=== PATIENT | male | born 1945 | race Caucasian/White ===

== ENCOUNTER → 2017-01-02 | Outpatient (CLI) | payer MEDICARE ==
[~2017-01-02] MED LIST: ALPR.25T PO; AMOX500C2 PO; ASP81CT PO; ATEN-155 PO; CLOP75TA PO; DIAZ5TAB49 PO; FEXO180T PO; FISH1CAP15 PO; FLT05NA16 NS; FLUT10SP NS; LOSA25TA15 PO; LOSA50TA6 PO; MECL25TA56 PO; MULT-1029 PO; MULT-418; OXYC-12 PO; PNT40TEC PO; PRV20T PO; SCOP1PAT TD; SIMV40TA4 PO; VALS1TAB4 PO; VALS1TAB48 PO; VITAMIN C; VITAMIN E PO
--- NOTE | 2017-01-02 15:58 | Diagnostic Imaging Report ---
PROCEDURE: US gallbladder. TECHNIQUE: Multiple real-time grayscale images were obtained over the right upper quadrant in various projections. INDICATION: Right upper quadrant pain. FINDINGS: The pancreas is obscured by bowel gas. The liver is hyperechoic and is slightly enlarged, measuring 19 cm in craniocaudal diagonal dimension. There is hepatopedal flow in the portal vein. The gallbladder demonstrates no stones or wall thickening. It is slightly contracted. The sonographic Bazan sign is reportedly negative. The CBD is obscured by bowel gas. No intrahepatic biliary dilatation is evident. The right kidney is 11.5 cm in length with no hydronephrosis or focal lesion. No fluid collection in the upright abdomen is seen. IMPRESSION: Mildly enlarged hyperechoic liver may relate to fatty infiltration or hepatitis. Dictated by: Dictated on workstation # [id number]
== END ==
LOC: RAD 14:41
PROVIDERS: ATTEND Family Medicine
DX: R10.11 Right upper quadrant pain (principal)
CPT/HCPCS: 76705

== ENCOUNTER → 2017-01-14 | Outpatient (CLI) | payer MEDICARE ==
--- NOTE | 2017-01-14 13:02 | Diagnostic Imaging Report ---
PROCEDURE: CT abdomen and pelvis without contrast. TECHNIQUE: Multiple contiguous axial images were obtained through the abdomen and pelvis without the use of intravenous contrast. INDICATION: Elevated liver enzymes and abdominal pain. Patient is allergic to iodine contrast. FINDINGS: There is mild low density throughout the liver, indicating fatty infiltration. Otherwise, unenhanced images of the liver and spleen reveal no focal abnormality. There is no evidence of gallbladder or pancreatic lesion. Adrenal glands are unremarkable in appearance. Evaluation of the kidneys is limited without intravenous contrast however there is no evidence of calculus or hydronephrosis. No ureteric stone is seen. Bladder is unopacified but otherwise unremarkable. There is no evidence of appendiceal enlargement or inflammation. There is mild aortoiliac atherosclerotic calcification and mild lower lumbar spondylosis. There is small umbilical hernia containing fat. IMPRESSION: Hepatic steatosis without other evidence of acute abnormality in the abdomen or pelvis on the noncontrasted CT exam. Dictated by: Dictated on workstation # [id number]
== END ==
LOC: RAD 10:50
PROVIDERS: ATTEND Nurse Practitioner Family
DX: K76.0 Fatty (change of) liver, not elsewhere classified (principal); K42.9 Umbilical hernia without obstruction or gangrene; R74.8 Abnormal levels of other serum enzymes
CPT/HCPCS: 74176

== ENCOUNTER → 2017-02-11 | Outpatient (CLI) | payer MEDICARE ==
[~2017-02-11] MED LIST changes: +CATHETER FLUSH 10 ML SYR IV PRN
[2017-02-11 09:46] VITALS: BP 162/84
[2017-02-11 10:00] VITALS: BP 174/88
[2017-02-11 10:04] VITALS: BP 146/80
== END ==
LOC: CARD 07:56
PROVIDERS: ATTEND Internal Medicine Cardiovascular Disease
DX: I25.10 Atherosclerotic heart disease of native coronary artery without angina pectoris (principal); I65.23 Occlusion and stenosis of bilateral carotid arteries; R73.02 Impaired glucose tolerance (oral); E78.4 Other hyperlipidemia; I10 Essential (primary) hypertension; I47.1 Supraventricular tachycardia; Z87.891 Personal history of nicotine dependence
CPT/HCPCS: 78452; 93017

== ENCOUNTER → 2017-03-03 | Outpatient (CLI) | payer MEDICARE ==
[~2017-03-03] MED LIST changes: -CATHETER FLUSH 10 ML SYR IV PRN
== END ==
LOC: CARD 11:51
PROVIDERS: ATTEND Internal Medicine Cardiovascular Disease
DX: I25.10 Atherosclerotic heart disease of native coronary artery without angina pectoris (principal); I65.23 Occlusion and stenosis of bilateral carotid arteries; R73.02 Impaired glucose tolerance (oral); E78.4 Other hyperlipidemia; I10 Essential (primary) hypertension; I47.1 Supraventricular tachycardia; Z87.891 Personal history of nicotine dependence
CPT/HCPCS: 93306

== ENCOUNTER 2017-04-10 20:00 | Outpatient (CLI) | payer MEDICARE | END 2017-04-11 06:47 | disposition home or self-care (01) | LOC: SLEEP 20:00 | PROVIDERS: ATTEND Nurse Practitioner Family | DX: G47.33 Obstructive sleep apnea (adult) (pediatric) (principal); G47.10 Hypersomnia, unspecified | CPT/HCPCS: 95811 ==

== ENCOUNTER 2018-03-30 14:02 | Emergency (ER) | payer MEDICARE ==
[~2018-03-30] VITALS: Ht 175.3 cm; Wt 110.7 kg
--- OUTSIDE RECORDS SUMMARY | 2018-03-30 14:08 | XMS REPORT | Continuity of Care Document ---
Author Author [facility] Organization [facility] Address Unknown Phone Unavailable Allergies Active Description Code Type Severity Reaction Onset Reported/Identified Relationship to Patient Clinical Status Yes NKANo Known Allergies NKA Miscellaneous Allergy Mild N/A 06/20/2009 Yes iodine [id number] Drug Allergy Unknown RASH 03/11/2012 Medications There is no data. 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 07/16/2012 Ot 401.9 HYPERTENSION NOS 07/16/2012 Ot 414.01 CORONARY ATHEROSCLEROSIS OF [place] CORON 07/16/2012 Ot 785.1 PALPITATIONS 07/16/2012 Ot V58.66 LONG-TERM ( CURRENT) USE OF ASPIRIN 07/16/2012 Ot V58.69 OTH MED,LT, CURRENT USE 07/16/2012 Ot V85.36 BODY MASS INDEX 36.0-36.9, ADULT 01/19/2014 BOAZ LU MD Ot 455.0 INT HEMORRHOID W/O COMPL 01/19/2014 BOAZ LU MD Ot 455.3 EXT HEMORRHOID W/O COMPL 01/19/2014 BOAZ LU MD Ot 562.10 DIVERTICULOSIS COLON (W/O MENT OF HEMORR 01/19/2014 BOAZ LU MD Ot V12.72 PERSONAL HISTORY OF COLONIC POLYPS 05/24/2014 AFSANEH BETH MD Ot 427.69 05/24/2014 AFSANEH BETH MD Ot 786.05 05/24/2014 AFSANEH BETH MD Ot 786.50 06/07/2014 WELLINGTON CHANCE FACC, ALI FACP CCDS Ot 401.9 HYPERTENSION NOS 06/07/2014 WELLINGTON CHANCE FACC, ALI FACP CCDS Ot 414.01 CORONARY ATHEROSCLEROSIS OF [place] CORON 06/07/2014 WELLINGTON CHANCE FACC, ALI FACP CCDS Ot 414.4 CORONARY ATHEROSCLEROSIS DUE TO [place] 06/07/2014 WELLINGTON CHANCE FACC, ALI FACP CCDS Ot 447.8 ARTERIAL DISEASE NEC 06/07/2014 WELLINGTON CHANCE FACC, ALI FACP CCDS Ot 785.1 PALPITATIONS 06/07/2014 WELL[place] CHANCE FACCourtney, ALI FACP CCDS Ot 786.09 RESPIRATORY ABNORM NEC 06/07/2014 WELLINGTON CHANCE FACC, ALI FACP CCDS Ot V45.82 PERCUTANEOUS TRANSLUM CORON ANGIOPLASTY 06/07/2014 [place]LL[place] FRAZIERC, ALI FACP CCDS Ot V58.69 OT MED,LT,CURRENT USE 07/13/2014 JONNIE ZHANG MD Ot 414.00 07/13/2014 JONNIE ZHANG MD Ot V45.81 07/18/2014 [place] CHANCE FACC, ALI FACP CCDS Ot V45.81 07/18/2014 WELL[place] CHANCE FACC, ALI FACP CCDS Ot V57.89 07/19/2014 WELLINGTON CHANCE FACC, ALI FACP CCDS Ot V45.81 07/19/2014 WELLINGTON CHANCE FACC, ALI FACP CCDS Ot V57.89 07/21/2014 AFSANEH BETH MD Ot 427.69 07/21/2014 AFSANEH BTEH MD Ot 786.05 07/21/2014 AFSANEH BETH MD Ot 786.50 07/22/2014 WELLINGTON CHANCE FACC, ALI FACP CCDS Ot V45.81 AORTOCORONARY BYPASS 07/22/2014 WELLINGTON CHANCE FACC, ALI FACP CCDS Ot V57.89 REHABILITATION PROC NEC 07/22/2014 AFSANEH BETH MD Ot 427.69 07/22/2014 AFSANEH BETH MD Ot 786.05 07/22/2014 AFSANEH BETH MD Ot 786.50 08/22/2014 KIRIT CHANCE, AFSANEH Pichardo Ot 427.69 PREMATURE BEATS NEC 08/22/2014 KIRIT CHANCE, AFSANEH Pichardo Ot 786.05 SHORTNESS OF BREATH 08/22/2014 KIRIT CHANCE, AFSANEH Pichardo Ot 786.50 CHEST PAIN NOS 11/11/2014 WELLINGTON CHANCE FACC, ALI FACP CCDS Ot 414.9 12/07/2014 [place]LL[place] CHANCE FACC, ALI FACP CCDS Ot 414.9 02/20/2015 Ot 414.01 02/20/2015 Ot 562.10 02/20/2015 Ot 789.00 02/20/2015 Ot 715.31 02/20/2015 Ot 727.61 02/20/2015 Ot 727.61 02/20/2015 Ot V72.63 02/20/2015 Ot V72.81 02/20/2015 Ot V74.8 02/20/2015 DELROY CHANCE, SHELLEY Hernandez Ot 599.0 02/20/2015 DELROY CHANCE, SHELLEY Hernandez Ot 786.05 02/20/2015 DELROY CHANCE, SHELLEY Hernandez Ot 786.50 02/20/2015 ASHLEY CHANCE, YOUNG Nicole Ot 724.4 02/20/2015 WELL[place] CHANCE FACC, ALI FACP CCDS Ot 278.00 02/20/2015 WELLINGTON CHANCE FACC, ALI FACP CCDS Ot 414.00 02/20/2015 WELLINGTON CHANCE FACC, ALI FACP CCDS Ot 427.89 02/20/2015 WELLINGTON CHANCE FACC, ALI FACP CCDS Ot 780.79 02/20/2015 WELLINGTON CHANCE FACC, ALI FACP CCDS Ot 790.22 02/20/2015 WELLINGTON CHANCE FACC, ALI FACP CCDS Ot V85.35 02/20/2015 FIDE CHANCE, ADAN Wheeler Ot 786.2 02/20/2015 FIDE CHANCE, ADAN A Ot 786.59 02/20/2015 FIDE CHANCE, ADAN Wheeler Ot 794.5 02/20/2015 AFSANEH BETH MD Ot 473.0 02/20/2015 AFSANEH BETH MD Ot 478.19 02/20/2015 TABITHA CHANCE, BOAZ Ot V72.84 02/20/2015 LEATHA CHANCE, JONNIE Ot 414.00 02/20/2015 LEATHA CHANCE, JONNIE Ot V45.81 02/20/2015 Ot 427.69 02/20/2015 Ot 786.05 02/20/2015 Ot 786.50 02/20/2015 WELLINGTON CHANCE FACC, ALI FACP CCDS Ot 414.9 03/14/2015 NORBERT ROQUE MD Ot 240.9 03/22/2015 NORBERT ROQUE MD Ot 240.9 01/12/2016 Ot 414.01 CORONARY ATHEROSCLEROSIS OF [place] CORON 01/12/2016 Ot 562.10 DIVERTICULOSIS COLON (W/O MENT OF HEMORR 01/12/2016 Ot 789.00 ABDOMINAL PAIN, UNSPECIFIED SITE 01/12/2016 Ot 715.31 LOC OSTEOARTH NOS-SHLDER 01/12/2016 Ot 727.61 ROTATOR CUFF RUPTURE 01/12/2016 Ot 727.61 ROTATOR CUFF RUPTURE 01/12/2016 Ot V72.63 PRE- PROCEDURAL LABORATORY EXAMINATION 01/12/2016 Ot V72.81 EXAM-PRE- OPERATIVE CARDIOVASCULAR 01/12/2016 Ot V74.8 SCREEN- BACTERIAL DIS NEC 01/12/2016 DELROY CHANCE, SHELLEY Hernandez Ot 599.0 URIN TRACT INFECTION NOS 01/12/2016 DELROY CHANCE, SHELLEY Hernandez Ot 786.05 SHORTNESS OF BREATH 01/12/2016 DELROY CHANCE, SHELLEY Hernandez Ot 786.50 CHEST PAIN NOS 01/12/2016 ASHLEY CHANCE, YOUNG Nicole Ot 724.4 LUMBOSACRAL NEURITIS NOS 01/12/2016 WELLINGTON CHANCE FACC, SANTIAGO FACP CCDS Ot 278.00 OBESITY, NOS 01/12/2016 WELLINGTON CHANCE FACC, ALI FACP CCDS Ot 414.00 CORON ATHEROSCLER NOS TYPE VESSEL, NATIV 01/12/2016 WELLINGTON CHANCE FACC, ALI FACP CCDS Ot 427.89 CARDIAC DYSRHYTHMIAS NEC 01/12/2016 WELLINGTON CHANCE FACC, ALI FACP CCDS Ot 780.79 OTH MALAISE FATIGUE 01/12/2016 WELLINGTON CHANCE FACC, ALI FACP CCDS Ot 790.22 IMPAIRED GLUCOSE TOLERANCE TEST (ORAL) 01/12/2016 WELLINGTON CHANCE FACC, ALI FACP CCDS Ot V85.35 BODY MASS INDEX 35.0-35.9, ADULT 01/12/2016 ADAN ELIZALDE MD Ot 786.2 COUGH 01/12/2016 ADAN ELIZALDE MD Ot 786.59 CHEST PAIN NEC 01/12/2016 ADAN ELIZALDE MD Ot 794.5 ABN THYROID FUNCT STUDY 01/12/2016 KIRIT CHANCE, AFSANEH Pichardo Ot 473.0 CHR MAXILLARY SINUSITIS 01/12/2016 AFSANEH BETH MD Ot 478.19 OTHER DISEASE OF NASAL CAVITY AND SINUSE 01/12/2016 BOAZ LU MD Ot V72.84 EXAM PRE-OPERATIVE NOS 01/12/2016 JONNIE ZHANG MD Ot 414.00 CORON ATHEROSCLER NOS TYPE VESSEL, NATIV 01/12/2016 JONNIE ZHANG MD Ot V45.81 AORTOCORONARY BYPASS 01/12/2016 Ot 427.69 PREMATURE BEATS NEC 01/12/2016 Ot 786.05 SHORTNESS OF BREATH 01/12/2016 Ot 786.50 CHEST PAIN NOS 01/12/2016 WELLINGTON CHANCE FACC, ALI FACP CCDS Ot 414.9 CHR ISCHEMIC HRT DIS NOS 01/12/2016 NORBERT ROQUE MD Ot 240.9 GOITER NOS 01/15/2016 WELLINGTON CHANCE FACC, ALI FACP CCDS Ot R07.89 OTHER CHEST PAIN 02/06/2016 WELLINGTON CHANCE FACC, ALI FACP CCDS Ot R07.89 OTHER CHEST PAIN 02/06/2016 AMRIT STANLEY ASSORTMENT PLANNER Ot R07.89 OTHER CHEST PAIN 02/16/2016 WELLINGTON CHANCE FACC, ALI FACP CCDS Ot R07.89 OTHER CHEST PAIN 02/16/2016 AMRIT STANLEY ASSORTMENT PLANNER Ot R07.89 OTHER CHEST PAIN 03/07/2016 KAE SHOOK APRN Ot E04.1 NONTOXIC SINGLE THYROID NODULE 03/23/2016 Ot 414.01 CORONARY ATHEROSCLEROSIS OF [place] CORON 03/23/2016 Ot 562.10 DIVERTICULOSIS COLON (W/O MENT OF HEMORR 03/23/2016 Ot 789.00 ABDOMINAL PAIN, UNSPECIFIED SITE 03/23/2016 Ot 715.31 LOC OSTEOARTH NOS-SHLDER 03/23/2016 Ot 727.61 ROTATOR CUFF RUPTURE 03/23/2016 Ot 727.61 ROTATOR CUFF RUPTURE 03/23/2016 Ot V72.63 PRE- PROCEDURAL LABORATORY EXAMINATION 03/23/2016 Ot V72.81 EXAM-PRE- OPERATIVE CARDIOVASCULAR 03/23/2016 Ot V74.8 SCREEN- BACTERIAL DIS NEC 03/23/2016 DELROY CHANCE, SHELLEY Hernandez Ot 599.0 URIN TRACT INFECTION NOS 03/23/2016 DELROY CHANCE, SHELLEY Hernandez Ot 786.05 SHORTNESS OF BREATH 03/23/2016 SHELLEY POTTS MD Ot 786.50 CHEST PAIN NOS 03/23/2016 ASHLEY CHANCE, YOUNG Nicole Ot 724.4 LUMBOSACRAL NEURITIS NOS 03/23/2016 WELLINGTON CHANCE FACC, ALI FACP CCDS Ot 278.00 OBESITY, NOS 03/23/2016 WELLINGTON CHANCE FACC, ALI FACP CCDS Ot 414.00 CORON ATHEROSCLER NOS TYPE VESSEL, NATIV 03/23/2016 WELLINGTON CHANCE FACC, ALI FACP CCDS Ot 427.89 CARDIAC DYSRHYTHMIAS NEC 03/23/2016 WELLINGTON CHANCE FACC, ALI FACP CCDS Ot 780.79 OTH MALAISE FATIGUE 03/23/2016 WELLINGTON CHANCE FACC, ALI FACP CCDS Ot 790.22 IMPAIRED GLUCOSE TOLERANCE TEST (ORAL) 03/23/2016 WELLINGTON FRAZIERC, ALI FACP CCDS Ot V85.35 BODY MASS INDEX 35.0-35.9, ADULT 03/23/2016 ADAN ELIZALDE MD Ot 786.2 COUGH 03/23/2016 ADAN ELIZALDE MD Ot 786.59 CHEST PAIN NEC 03/23/2016 ADAN ELIZALDE MD Ot 794.5 ABN THYROID FUNCT STUDY 03/23/2016 KIRIT CHANCE, AFSANEH Pichardo Ot 473.0 CHR MAXILLARY SINUSITIS 03/23/2016 AFSANEH BETH MD Ot 478.19 OTHER DISEASE OF NASAL CAVITY AND SINUSE 03/23/2016 TABITHA CHANCE, BOAZ Ot V72.84 EXAM PRE-OPERATIVE NOS 03/23/2016 JONNIE ZHANG MD Ot 414.00 CORON ATHEROSCLER NOS TYPE VESSEL, NATIV 03/23/2016 JONNIE ZHANG MD Ot V45.81 AORTOCORONARY BYPASS 03/23/2016 Ot 427.69 PREMATURE BEATS NEC 03/23/2016 Ot 786.05 SHORTNESS OF BREATH 03/23/2016 Ot 786.50 CHEST PAIN NOS 03/23/2016 WELLINGTON CHANCE FACC, ALI FACP CCDS Ot 414.9 CHR ISCHEMIC HRT DIS NOS 03/23/2016 MYA CHANCE, NORBERT Wheeler Ot 240.9 GOITER NOS 03/23/2016 WELLINGTON CHANCE FAC, ALI FACP CCDS Ot R07.89 OTHER CHEST PAIN 03/23/2016 AMRIT STANLEY ASSORTMENT PLANNER Ot R07.89 OTHER CHEST PAIN 03/23/2016 BOONE KAE M SPARMAKER Ot E04.1 NONTOXIC SINGLE THYROID NODULE 03/29/2016 Ot 414.01 CORONARY ATHEROSCLEROSIS OF [place] CORON 03/29/2016 Ot 562.10 DIVERTICULOSIS COLON (W/O MENT OF HEMORR 03/29/2016 Ot 789.00 ABDOMINAL PAIN, UNSPECIFIED SITE 03/29/2016 Ot 715.31 LOC OSTEOARTH NOS-SHLDER 03/29/2016 Ot 727.61 ROTATOR CUFF RUPTURE 03/29/2016 Ot 727.61 ROTATOR CUFF RUPTURE 03/29/2016 Ot V72.63 PRE- PROCEDURAL LABORATORY EXAMINATION 03/29/2016 Ot V72.81 EXAM-PRE- OPERATIVE CARDIOVASCULAR 03/29/2016 Ot V74.8 SCREEN- BACTERIAL DIS NEC 03/29/2016 DELROY CHANCE, SHELLEY Hernandez Ot 599.0 URIN TRACT INFECTION NOS 03/29/2016 SHELLEY POTTS MD Ot 786.05 SHORTNESS OF BREATH 03/29/2016 SHELLEY POTTS MD Ot 786.50 CHEST PAIN NOS 03/29/2016 ASHLEY CHANCE, YOUNG Nicole Ot 724.4 LUMBOSACRAL NEURITIS NOS 03/29/2016 WELLINGTON CHANCE FACC, SANTIAGO FACP CCDS Ot 278.00 OBESITY, NOS 03/29/2016 WELLINGTON CHANCE FACC, ALI FACP CCDS Ot 414.00 CORON ATHEROSCLER NOS TYPE VESSEL, NATIV 03/29/2016 WELLINGTON CHANCE FACC, ALI FACP CCDS Ot 427.89 CARDIAC DYSRHYTHMIAS NEC 03/29/2016 WELLINGTON CHANCE FACC, SANTIAGO FACP CCDS Ot 780.79 OTH MALAISE FATIGUE 03/29/2016 WELLINGTON CHANCE FACC, SANTIAGO FACP CCDS Ot 790.22 IMPAIRED GLUCOSE TOLERANCE TEST (ORAL) 03/29/2016 WELLINGTON CHANCE FACC, ALI FACP CCDS Ot V85.35 BODY MASS INDEX 35.0-35.9, ADULT 03/29/2016 ADAN ELIZALDE MD Ot 786.2 COUGH 03/29/2016 FIDE MD, ADAN A Ot 786.59 CHEST PAIN NEC 03/29/2016 FIDE CHANCE, ADAN Wheeler Ot 794.5 ABN THYROID FUNCT STUDY 03/29/2016 KIRIT CHANCE, AFSANEH Pichardo Ot 473.0 CHR MAXILLARY SINUSITIS 03/29/2016 AFSANEH BETH MD Ot 478.19 OTHER DISEASE OF NASAL CAVITY AND SINUSE 03/29/2016 TABITHA CHANCE, BOAZ Ot V72.84 EXAM PRE-OPERATIVE NOS 03/29/2016 JONNIE ZHANG MD Ot 414.00 CORON ATHEROSCLER NOS TYPE VESSEL, NATIV 03/29/2016 JONNIE ZHANG MD Ot V45.81 AORTOCORONARY BYPASS 03/29/2016 Ot 427.69 PREMATURE BEATS NEC 03/29/2016 Ot 786.05 SHORTNESS OF BREATH 03/29/2016 Ot 786.50 CHEST PAIN NOS 03/29/2016 WELLINGTON CHANCE FACC, ALI FACP CCDS Ot 414.9 CHR ISCHEMIC HRT DIS NOS 03/29/2016 NORBERT ROQUE MD Ot 240.9 GOITER NOS 03/29/2016 WELLINGTON CHANCE FACC, ALI FACP CCDS Ot R07.89 OTHER CHEST PAIN 03/29/2016 AMRIT STANLEY ASSORTMENT PLANNER Ot R07.89 OTHER CHEST PAIN 03/29/2016 KAE SHOOK SPARMAKER Ot E04.1 NONTOXIC SINGLE THYROID NODULE 04/03/2016 KAE SHOOK SPARMAKER Ot E04.1 NONTOXIC SINGLE THYROID NODULE 01/02/2017 Ot 414.01 CORONARY ATHEROSCLEROSIS OF [place] CORON 01/02/2017 Ot 562.10 DIVERTICULOSIS COLON (W/O MENT OF HEMORR 01/02/2017 Ot 789.00 ABDOMINAL PAIN, UNSPECIFIED SITE 01/02/2017 Ot 715.31 LOC OSTEOARTH NOS-SHLDER 01/02/2017 Ot 727.61 ROTATOR CUFF RUPTURE 01/02/2017 Ot 727.61 ROTATOR CUFF RUPTURE 01/02/2017 Ot V72.63 PRE- PROCEDURAL LABORATORY EXAMINATION 01/02/2017 Ot V72.81 EXAM-PRE- OPERATIVE CARDIOVASCULAR 01/02/2017 Ot V74.8 SCREEN- BACTERIAL DIS NEC 01/02/2017 DELROY CHANCE, SHELLEY Hernandez Ot 599.0 URIN TRACT INFECTION NOS 01/02/2017 DELROY CHANCE, SHELLEY Hernandez Ot 786.05 SHORTNESS OF BREATH 01/02/2017 SHELLEY POTTS MD Ot 786.50 CHEST PAIN NOS 01/02/2017 ASHLEY CHANCE, YOUNG Nicole Ot 724.4 LUMBOSACRAL NEURITIS NOS 01/02/2017 WELLINGTON CHANCE FAC, ALI FACP CCDS Ot 278.00 OBESITY, NOS 01/02/2017 WELLINGTON CHANCE FACC, ALI FACP CCDS Ot 414.00 CORON ATHEROSCLER NOS TYPE VESSEL, NATIV 01/02/2017 WELLINGTON CHANCE FACCourtney, ALI FACP CCDS Ot 427.89 CARDIAC DYSRHYTHMIAS NEC 01/02/2017 WELLINGTON FRAZIERC, ALI FACP CCDS Ot 780.79 OTH MALAISE FATIGUE 01/02/2017 WELLINGTON CHANCE FACC, ALI FACP CCDS Ot 790.22 IMPAIRED GLUCOSE TOLERANCE TEST (ORAL) 01/02/2017 WELLINGTON CHANCE FACC, ALI FACP CCDS Ot V85.35 BODY MASS INDEX 35.0-35.9, ADULT 01/02/2017 ADAN ELIZALDE MD Ot 786.2 COUGH 01/02/2017 ADAN ELIZALDE MD Ot 786.59 CHEST PAIN NEC 01/02/2017 ADAN ELIZALDE MD Ot 794.5 ABN THYROID FUNCT STUDY 01/02/2017 AFSANEH BETH MD Ot 473.0 CHR MAXILLARY SINUSITIS 01/02/2017 AFSANEH BETH MD Ot 478.19 OTHER DISEASE OF NASAL CAVITY AND SINUSE 01/02/2017 TABITHA CHANCE, BOAZ Ot V72.84 EXAM PRE-OPERATIVE NOS 01/02/2017 JONNIE ZHANG MD Ot 414.00 CORON ATHEROSCLER NOS TYPE VESSEL, NATIV 01/02/2017 JONNIE ZHANG MD Ot V45.81 AORTOCORONARY BYPASS 01/02/2017 Ot 427.69 PREMATURE BEATS NEC 01/02/2017 Ot 786.05 SHORTNESS OF BREATH 01/02/2017 Ot 786.50 CHEST PAIN NOS 01/02/2017 WELLINGTON CHANCE FACC, ALI FACP CCDS Ot 414.9 CHR ISCHEMIC HRT DIS NOS 01/02/2017 NORBERT ROQUE MD Ot 240.9 GOITER NOS 01/02/2017 WELLINGTON CHANCE FACC, ALI FACP CCDS Ot R07.89 OTHER CHEST PAIN 01/02/2017 AMRIT STANLEY Ot R07.89 OTHER CHEST PAIN 01/02/2017 KAE SHOOK SPARMAKER Ot E04.1 NONTOXIC SINGLE THYROID NODULE 01/03/2017 MYA CHANCE, NORBERT A Ot R10.11 RIGHT UPPER QUADRANT PAIN 01/27/2017 MYA CHANCE, NORBERT Wheeler Ot R10.11 RIGHT UPPER QUADRANT PAIN 01/29/2017 NORBERT ROQUE MD Ot R10.11 RIGHT UPPER QUADRANT PAIN 02/04/2017 KAE SHOOK SPARMAKER Ot K42.9 UMBILICAL HERNIA WITHOUT OBSTRUCTION OR 02/04/2017 KAE SHOOK SPARMAKER Ot K76.0 FATTY (CHANGE OF) LIVER, NOT ELSEWHERE C 02/04/2017 KAE SHOOK SPARMAKER Ot R74.8 ABNORMAL LEVELS OF OTHER SERUM ENZYMES 02/17/2017 KAE SHOOK SPARMAKER Ot K42.9 UMBILICAL HERNIA WITHOUT OBSTRUCTION OR 02/17/2017 KAE SHOOK SPARMAKER Ot K76.0 FATTY (CHANGE OF) LIVER, NOT ELSEWHERE C 02/17/2017 KAE SHOOK SPARMAKER Ot R74.8 ABNORMAL LEVELS OF OTHER SERUM ENZYMES 03/04/2017 WELLINGTON CHANCE FACC, SANTIAGO FACP CCDS Ot E78.4 OTHER HYPERLIPIDEMIA 03/04/2017 WELLINGTON CHANCE FACC, SANTIAGO FACP CCDS Ot I10 ESSENTIAL (PRIMARY) HYPERTENSION 03/04/2017 WELLINGTON CHANCE FACC, SANTIAGO FACP CCDS Ot I25.10 ATHSCL HEART DISEASE OF [place] CORONARY 03/04/2017 SANTIAGO PARIS MD, FACC FACP CCDS Ot I47.1 SUPRAVENTRICULAR TACHYCARDIA 03/04/2017 SANTIAGO PARIS MD, FACC FACP CCDS Ot I65.23 OCCLUSION AND STENOSIS OF BILATERAL [place] 03/04/2017 WELLINGTON CHANCE FACC, ALI FACP CCDS Ot R73.02 IMPAIRED GLUCOSE TOLERANCE (ORAL) 03/04/2017 WELLINGTON CHANCE FACC, ALI FACP CCDS Ot Z87.891 PERSONAL HISTORY OF NICOTINE DEPENDENCE 03/13/2017 SANTIAGO PARIS MD, FACC FACP CCDS Ot E78.4 OTHER HYPERLIPIDEMIA 03/13/2017 WELLINGTON CHANCE FACC, ALI FACP CCDS Ot I10 ESSENTIAL (PRIMARY) HYPERTENSION 03/13/2017 WELLINGTON CHANCE FACC, ALI FACP CCDS Ot I25.10 ATHSCL HEART DISEASE OF [place] CORONARY 03/13/2017 WELLINGTON MD FACC, ALI FACP CCDS Ot I47.1 SUPRAVENTRICULAR TACHYCARDIA 03/13/2017 WELLINGTON CHANCE FACC, ALI FACP CCDS Ot I65.23 OCCLUSION AND STENOSIS OF BILATERAL [place] 03/13/2017 WELLINGTON CHANCE FACC, ALI FACP CCDS Ot R73.02 IMPAIRED GLUCOSE TOLERANCE (ORAL) 03/13/2017 WELLINGTON CHANCE FACC, ALI FACP CCDS Ot Z87.891 PERSONAL HISTORY OF NICOTINE DEPENDENCE 03/25/2017 WELLINGTON CHANCE FACC, ALI FACP CCDS Ot E78.4 OTHER HYPERLIPIDEMIA 03/25/2017 WELLINGTON CHANCE FACC, ALI FACP CCDS Ot I10 ESSENTIAL (PRIMARY) HYPERTENSION 03/25/2017 WELLINGTON CHANCE FACC, ALI FACP CCDS Ot I25.10 ATHSCL HEART DISEASE OF [place] CORONARY 03/25/2017 WELLINGTON CHANCE FACC, ALI FACP CCDS Ot I47.1 SUPRAVENTRICULAR TACHYCARDIA 03/25/2017 WELLINGTON CHANCE FACC, ALI FACP CCDS Ot I65.23 OCCLUSION AND STENOSIS OF [place]ILATERAL [place] 03/25/2017 WELL[place] CHANCE FACC, ALI FACP CCDS Ot R73.02 IMPAIRED GLUCOSE TOLERANCE (ORAL) 03/25/2017 [facility], ALI FACP CCDS Ot Z87.891 PERSONAL HISTORY OF NICOTINE DEPENDENCE 04/02/2017 WELLINGTON CHANCE [facility], ALI FACP CCDS Ot E78.4 OTHER HYPERLIPIDEMIA 04/02/2017 WELLINGTON CHANCE FACC, ALI FACP CCDS Ot I10 ESSENTIAL (PRIMARY) HYPERTENSION 04/02/2017 WELLINGTON CHANCE FACC, ALI FACP CCDS Ot I25.10 ATHSCL HEART DISEASE OF [place] CORONARY 04/02/2017 WELLINGTON CHANCE FAC, ALI FACP CCDS Ot I47.1 SUPRAVENTRICULAR TACHYCARDIA 04/02/2017 WELLINGTON CHANCE [facility], ALI FACP CCDS Ot I65.23 OCCLUSION AND STENOSIS OF BILATERAL [place] 04/02/2017 WELLINGTON CHANCE FACC, ALI FACP CCDS Ot R73.02 IMPAIRED GLUCOSE TOLERANCE (ORAL) 04/02/2017 WELLINGTON CHANCE FACC, ALI FACP CCDS Ot Z87.891 PERSONAL HISTORY OF NICOTINE DEPENDENCE 04/11/2017 DORIAN RAMAN APRN Ot G47.10 HYPERSOMNIA, UNSPECIFIED 04/11/2017 DORIAN RAMAN APRN Ot G47.33 OBSTRUCTIVE SLEEP APNEA (ADULT) (PEDIATR Procedures There is no data. Results There is no data. Encounters ACCT No. Visit Date/Time Discharge Status Pt. Type Provider Facility Loc./Unit Complaint [id number] 04/10/2017 20:00:00 04/11/2017 06:47:00 DIS Outpatient DORIAN RAMAN APRN [facility] SLEEP HYPERSOMNIA [id number] 03/03/2017 11:51:00 03/03/2017 23:59:59 CLS Outpatient SANTIAGO PARIS MD, FACC FACCorey CCDS [facility] CARD CAD [id number] 02/11/2017 07:56:00 02/11/2017 23:59:59 CLS Outpatient SANTIAGO PARIS MD, FACC, FACP CCDS [facility] CARD CAD [id number] 01/14/2017 10:50:00 01/14/2017 23:59:59 CLS Outpatient KAE SHOOK APRN [facility] RAD ELEVATED LIVER ENZYMES,RUQ PAIN [id number] 01/02/2017 14:41:00 01/02/2017 23:59:59 CLS Outpatient NORBERT ROQUE MD [facility] RAD RUQ ABD PAIN [id number] 03/06/2016 08:16:00 03/06/2016 23:59:59 CLS Outpatient KAE SHOOK APRN [facility] RAD NODULE [id number] 01/15/2016 14:44:00 01/15/2016 23:59:59 CLS Outpatient AMRIT STANLEY [facility] RAD CHEST WALL PAIN, STERNAL PAIN [id number] 01/12/2016 14:06:00 01/12/2016 23:59:59 CLS Outpatient SANTIAGO PARIS MD, FACC, FACP CCDS [facility] CARD CHEST DISCOMFORT [id number] 02/20/2015 10:46:00 02/20/2015 23:59:59 CLS Outpatient NORBERT ROQUE MD [facility] RAD ENLARGED THYROID [id number] 10/11/2014 07:38:00 10/11/2014 23:59:59 CLS Outpatient SANTIAGO PARIS MD, FACC, FACP CCDS [facility] CARD CAD [id number] 07/22/2014 11:36:00 07/22/2014 13:27:00 DIS Outpatient WELLINGTON CHANCE FACC, SANTIAGO SQUIRES CCDS [facility] CR STATUS POST ACB 05/2014 [id number] 06/17/2014 13:40:00 06/17/2014 23:59:59 CLS Outpatient JONNIE ZHANG MD [facility] HH S/P CABG X 1, CAD [id number] 06/07/2014 07:01:00 06/07/2014 17:55:00 DIS Outpatient WELLINGTON CHANCE FACC, SANTIAGO SQUIRES CCDS [facility] CATH CAD,HTN,HLP [id number] 05/24/2014 08:27:00 05/24/2014 23:59:59 CLS Outpatient AFSANEH BETH MD [facility] RAD PVC'S, HSTY OF AFIB [id number] 01/19/2014 08:14:00 01/19/2014 11:45:00 DIS Outpatient BOAZ LU MD [facility] SDC HISTORY OF POLYPS [id number] 01/12/2014 08:19:00 01/12/2014 23:59:59 CLS Outpatient BOAZ LU MD [facility] PREOP HISTORY OF POLYPS [id number] 11/01/2013 08:08:00 11/01/2013 23:59:59 CLS Outpatient AFSANEH BETH MD [facility] RAD RECURRENT SINUSITIS [id number] 07/16/2013 10:47:00 07/16/2013 23:59:59 CLS Outpatient ADAN ELIZALDE MD [facility] RAD ABNORMAL CT [id number] 07/15/2013 08:24:00 07/15/2013 23:59:59 CLS Outpatient ADAN ELIZALDE MD [facility] RAD COUGH [id number] 06/08/2013 08:33:00 06/08/2013 23:59:59 CLS Outpatient WELLINGTON CHANCE FACC, SANTIAGO SQUIRES CCDS [facility] RAD CAD,HTN [id number] 05/03/2013 08:23:00 05/03/2013 23:59:59 CLS Outpatient ASHLEY CHANCE, YOUNG Nicole [facility] RAD LUMBAR RADICULOTATHY [id number] 02/02/2013 10:35:00 02/02/2013 23:59:59 CLS Outpatient DELROY CHANCE, SHELLEY Hernandez [facility] RAD UTI,SOB,PAIN IN RIB CAGE [id number] 01/22/2013 10:07:00 01/22/2013 23:59:59 CLS Outpatient [id number] 08/23/2014 08:15:00 Document Registration [id number] 07/16/2012 06:57:00 Document Registration [id number] 03/18/2012 05:43:00 Document Registration [id number] 03/11/2012 07:41:00 Document Registration [id number] 02/20/2012 14:44:00 Document Registration [id number] 02/17/2012 08:34:00 Document Registration [id number] 07/16/2011 07:11:00 Document Registration [email or web address] 02/20/2015 22:34:04 ACT Document Registration
--- NOTE | 2018-03-30 15:31 | Diagnostic Imaging Report ---
INDICATION: Cough and fatigue. TECHNIQUE: PA and lateral views of the chest were obtained at 3:30 PM. COMPARISON: 01/15/2016. FINDINGS: There is post sternotomy change with cardiomegaly. There is no focal infiltrate, pneumothorax, or pleural fluid. IMPRESSION: Cardiomegaly and post sternotomy change. No focal infiltrate, pneumothorax, or pleural fluid. No significant change from 01/15/2016. Dictated by: Dictated on workstation # [id number]
--- NOTE | 2018-03-30 15:40 | ED Cough/URI ---
General Chief Complaint: Cough/Cold/Flu Symptoms Stated Complaint: COUGH;DRAINAGE Nursing Triage Note: Pt ambulated to rm 7 w/o difficulty. Pt c/o cough, phlegm, raspy voice, drainage and fatigue for 2-3 days. Pt is leaving for [place] tomorrow and wanted to be checked out. Source: patient Exam Limitations: no limitations History of Present Illness Date Seen by Provider: Mar 30, 2018 Time Seen by Provider: 14:40 Initial Comments Patient is a 72 year old male who presents to the emergency room with c/o productive cough, loosing his voice, and sinus drainage, and malaise for the past 2-3 days. He states that he is getting ready to take a 3 week cruise that leaves from [facility] and he flys out tomorrow morning and he thought it best to be checked out before he leaves. Luis Alberto SOB or fevers. Allergies and Home Medications Allergies Coded Allergies: iodine (Unverified Allergy, Unknown, RASH, 03/11/12) Home Medications Alprazolam 0.25 Mg Tablet, 0.25 MG PO HS, (Reported) Aspirin 81 Mg Chew, 81 MG PO HS, (Reported) Azithromycin 250 Mg Tablet, 250 MG PO UD TAKE 2 TABLETS TODAY, THEN TAKE 1 TABLET DAILY FOR 4 MORE DAYS Prescribed by: REBECCA WOODS on 03/30/18 1606 Clopidogrel Bisulfate 75 Mg Tablet, 75 MG PO DAILY, (Reported) Fexofenadine Hcl 180 Mg Tablet, 180 MG PO DAILY PRN for ALLERGIES, (Reported) Fish Oil/Dha/Epa 1 Each Capsule, 1,000 MG PO DAILY, (Reported) Fluticasone Propionate 16 Gm [place], 2 SPRAYS NS DAILY, (Reported) Losartan Potassium 50 Mg Tablet, 50 MG PO DAILY, (Reported) Losartan Potassium 25 Mg Tablet, 25 MG PO DAILY, (Reported) Methylprednisolone 4 Mg Tab.ds.pk, 4 MG PO UD Prescribed by: REBECCA WOODS on 03/30/18 1606 Mu-Vits-Min Th/Lycopene/Lutein 1 Each Tablet, 1 EACH PO DAILY, (Reported) Pantoprazole Sod 40 Mg Tab, 40 MG PO DAILY, (Reported) Simvastatin 40 Mg Tablet, 40 MG PO DAILY Prescribed by: SANTIAGO PARIS on 06/07/14 1326 Patient Home Medication List Home Medication List Reviewed: Yes Review of Systems Review of Systems Constitutional: see HPI; No chills, No fever; malaise EENTM: see HPI, nose congestion Respiratory: see HPI, cough, phlegm; No short of breath, No wheezing All Other Systems Reviewed Negative Unless Noted: Yes Past Qrvabmw-Irfnjg-Etxngm Hx Past Med/Social Hx: Reviewed Nursing Past Med/Soc Hx Patient Social History Alcohol Use: Denies Use Recreational Drug Use: No 2nd Hand Smoke Exposure: No Recent Foreign Travel: No Contact w/Someone Who Travel: No Recent Infectious Disease Expo: No Recent Hopitalizations: No Immunizations Up To Date Date of Pneumonia Vaccine: Mar 23, 2012 Date of Influenza Vaccine: Apr 07, 2014 Past Medical History Surgeries: No Coronary Stent Respiratory: No Cardiac: Yes (irr hb-ablation 14yrs ago- ) Neurological: No Reproductive Disorders: No Sexually Transmitted Disease: No Gastrointestinal: Yes (reflux) Gastroesophageal Reflux Musculoskeletal: Yes (RIGHT SHOULDER-TORN ROTATOR CUFF) Endocrine: No Cancer: No Psychosocial: Yes Blood Disorders: No Family Medical History Reviewed Nursing Family Hx Physical Exam Vital Signs - First Documented 03/30/18 14:24 Temp 97.6 Pulse 68 Resp 20 B/P (MAP) 144/83 (103) Pulse Ox 97 O2 Delivery Room Air Capillary Refill : Less Than 3 Seconds Height: 5'9.00" Weight: 244lbs. oz. 110.051476ec; BMI Method:Stated General Appearance: WD/WN, no apparent distress HEENT: PERRL/EOMI, normal ENT inspection, TMs normal, pharynx normal Neck: non-tender, full range of motion, supple, normal inspection, carotid bruit Respiratory: chest non-tender, lungs clear, normal breath sounds, no respiratory distress, no accessory muscle use Cardiovascular: normal peripheral pulses, regular rate, rhythm, no edema, no gallop, no JVD, no murmur Neurologic/Psychiatric: alert, normal mood/affect, oriented x 3 Skin: normal color, warm/dry Progress/Results/Core Measures Suspected Sepsis Recent Fever Within 48 Hours: No Infection Criteria Present: None New/Unexplained Altered Menta: No Sepsis Screen: No Definite Risk SIRS Temperature:97.6 Pulse: 68 Respiratory Rate: 20 Blood Pressure 144 /83 Mean: 103 Results/Orders Micro Results Microbiology 03/30/18 Influenza Types A,B Antigen (FRANCES) - Final, Complete My Orders Orders - REBECCA WOODS Chest Pa/Lat (2 View) (03/30/18 14:44) Influenza A And B Antigens (03/30/18 14:44) Vital Signs/I&O 03/30/18 03/30/18 03/30/18 14:24 14:24 16:15 Temp 97.6 97.6 Pulse 68 68 Resp 20 20 B/P (MAP) 144/83 (103) 144/83 (103) Pulse Ox 97 97 O2 Delivery Room Air Room Air Room Air Capillary Refill : Less Than 3 Seconds Blood Pressure Mean: 103 Progress Note : Time: 15:30 Progress Note I have seen and evaluated the patient. I have informed him of normal studies. He agrees with plan of care, plans for discharge, return precautions were given. Voices no questions or concerns. Diagnostic Imaging Diagonstic Imaging: Xray Plain Films/CT/US/NM/MRI: chest Comments NAME: CRISTAL GIVENS [facility] REC#: [id number] PHYSICIAN: REBECCA WOODS CC: REBECCA WOODS; JOSE DOUGLAS MD Page 1 of 1 RADIOLOGY REPORT VIA [place], [place] CC: REBECCA WOODS; JOSE DOUGLAS MD Page 1 of 1 RADIOLOGY REPORT NAME: CRISTAL GIVENS [facility] REC#: [id number] PT STATUS: REG ER : 1945 PHYSICIAN: REBECCA WOODS ADMIT DATE: 03/30/18/ER Signed Date of Exam: 03/30/18 CHEST PA/LAT (2 VIEW) INDICATION: Cough and fatigue. TECHNIQUE: PA and lateral views of the chest were obtained at 3:30 PM. COMPARISON: 01/15/2016. FINDINGS: There is post sternotomy change with cardiomegaly. There is no focal infiltrate, pneumothorax, or pleural fluid. IMPRESSION: Cardiomegaly and post sternotomy change. No focal infiltrate, pneumothorax, or pleural fluid. No significant change from 01/15/2016. Dictated by: Dictated on workstation # [id number] Dict: 03/30/18 1514 Trans: 03/30/18 1609 Interpreted by: JOSE DOUGLAS MD Electronically signed by: JOSE DOGULAS MD 03/30/18 1609 Reviewed: Reviewed by Me Departure Impression Primary Impression: Upper respiratory infection Disposition: 01 HOME, SELF-CARE Condition: Stable/Unchanged Departure-Patient Inst. Decision time for Depature: 15:35 Referrals: NORBERT ROQUE MD (PCP/Family) Primary Care Physician Patient Instructions: Bacterial Upper Respiratory Infection, Adult (DC) Add. Discharge Instructions: Take medications as directed. Follow up with your regular doctor within 1 week for recheck. Return back to the emergency room for any worsening symptoms or concerns as needed. All discharge instructions reviewed with patient and/or family. Voiced understanding. Scripts Azithromycin (Zithromax) 250 Mg Tablet 250 MG PO UD, #6 TAB TAKE 2 TABLETS TODAY, THEN TAKE 1 TABLET DAILY FOR 4 MORE DAYS Prov: REBECCA WOODS 03/30/18 Methylprednisolone (Medrol) 4 Mg Tab.ds.pk 4 MG PO UD, #1 PKG Prov: REBECCA WOODS 03/30/18 REBECCA WOODS Mar 30, 2018 15:40
[2018-03-30] MEDS ORDERED: METH4TAB PO (16:06)
[2018-03-30] MEDS ORDERED: AZIT250T PO (16:06)
[2018-03-30 16:15] VITALS: BP 144/83
== END 2018-03-30 16:15 | disposition home or self-care (01) ==
LOC: EDUNIT# 14:02 → ER 14:03
DX: J06.9 Acute upper respiratory infection, unspecified (principal); K21.9 Gastro-esophageal reflux disease without esophagitis; Z91.041 Radiographic dye allergy status; Z79.82 Long term (current) use of aspirin; Z79.51 Long term (current) use of inhaled steroids; Z95.5 Presence of coronary angioplasty implant and graft
CPT/HCPCS: 71046; 87804

== ENCOUNTER → 2018-11-04 | Outpatient (CLI) | payer MEDICARE ==
[~2018-11-04] MED LIST changes: +AZIT250T PO; +METH4TAB PO
--- NOTE | 2018-11-04 13:00 | Diagnostic Imaging Report ---
INDICATION: ALLERGIC RHINITIS, OBSTRUCTIVE SLEEP APNEA, SLEEP DISORDER COMPARISON: 03/30/2018 FINDINGS: Frontal and lateral views of the chest demonstrate normal heart size and pulmonary vascularity. The lungs are clear. There are no signs of infiltrate, pleural effusions or pneumothoraces. The visualized osseous structures show no acute abnormalities. Sternotomy wires are noted. IMPRESSION: 1. No acute process. No signs of infiltrates, effusions or pneumothoraces. Dictated by: Dictated on workstation # [id number]
== END ==
LOC: RAD 10:52
PROVIDERS: ATTEND Nurse Practitioner Family
DX: J30.9 Allergic rhinitis, unspecified (principal); G47.33 Obstructive sleep apnea (adult) (pediatric); J98.4 Other disorders of lung; Z98.890 Other specified postprocedural states
CPT/HCPCS: 71046

== ENCOUNTER → 2018-11-17 | Outpatient (CLI) | payer MEDICARE ==
[~2018-11-17] MED LIST changes: +NF-MET200T PO
== END ==
LOC: CARD 09:47
PROVIDERS: ATTEND Internal Medicine Cardiovascular Disease
DX: I25.10 Atherosclerotic heart disease of native coronary artery without angina pectoris (principal); E11.9 Type 2 diabetes mellitus without complications; E78.5 Hyperlipidemia, unspecified; I47.1 Supraventricular tachycardia; G47.33 Obstructive sleep apnea (adult) (pediatric)
CPT/HCPCS: 93017

== ENCOUNTER → 2019-01-11 | Outpatient (CLI) | payer MEDICARE ==
[~2019-01-11] MED LIST changes: +RT-ALBUTEROL SULF 2.5 MG/3 ML PRE-MIX VIAL INH ONE
== END ==
LOC: RT 07:58
PROVIDERS: ATTEND Nurse Practitioner Family
DX: J30.9 Allergic rhinitis, unspecified (principal); G47.33 Obstructive sleep apnea (adult) (pediatric); J98.4 Other disorders of lung
CPT/HCPCS: 94060; 94726; 94729

== ENCOUNTER 2020-02-16 05:32 | Outpatient (RCR) | payer MEDICARE ==
[~2020-02-16] VITALS: Ht 175.3 cm; Wt 109.1 kg
[~2020-02-16 05:32] MED LIST changes: +ASPI-983 PO; +CANA100T PO; +LOSA50TA63 PO; +METF-399 PO; +METO100T12 PO; +MONT10TA26 PO; +MULT-1061 PO; +PANT40TA3 PO; -RT-ALBUTEROL SULF 2.5 MG/3 ML PRE-MIX VIAL INH ONE; +SIMV20TA26 PO
== END 2020-02-16 15:07 | disposition home or self-care (01) ==
LOC: PREOP 05:32
PROVIDERS: ATTEND Internal Medicine
DX: Z01.812 Encounter for preprocedural laboratory examination (principal); Z20.828 Contact with and (suspected) exposure to other viral communicable diseases
CPT/HCPCS: 87635

== ENCOUNTER 2020-02-18 07:55 | Day surgery (SDC) | payer MEDICARE ==
--- NOTE | 2020-02-14 10:53 | HISTORY AND PHYSICAL ---
DATE OF SERVICE: PANENDOSCOPY SUMMARY HISTORY OF PRESENT ILLNESS: The patient is a 74-year-old white male referred by Dr. Cevallos for panendoscopy for evaluation of reflux symptoms with a history of erosive esophagitis and stricture, requiring dilatation and bilateral lower quadrant crampy type pain with intermittent diarrhea. He denies any associated bright red blood per rectum or melena. It happens more often when he dines out, especially with [place] food. He will about every 3 to 4 weeks have an episode where he will have 3 or 4 loose stools and bilateral lower quadrant cramping. He denies night sweats, chills, fever or change in weight. PAST MEDICAL HISTORY: He states it has been at least five years since his last colonoscopy and probably at least 15 years since he underwent EGD with dilatation. He denies dysphagia, but if he misses the dose of pantoprazole, he will have reflux symptoms and rarely does so. PAST MEDICAL HISTORY: Significant for hypertension and coronary artery disease. He has had past stent placement but this has been a number of years. He underwent stress testing earlier this year, did not lead to any change in medication. He does not recall any symptoms. He has a history of hyperlipidemia and hypertension. SOCIAL HISTORY: He reports social alcohol intake with past cigar smoking history. He no longer does so, but for at least 20 years where he smoked 3 to 4 cigars per week. 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 PAST SURGICAL HISTORY: He underwent AV gris ablation for PSVT in 1998. He had a cyst removed from his tailbone, presumed pilonidal in 1960 and lipoma removed in 1996. MEDICATIONS: Invokana 300 mg daily, montelukast 10 mg daily, pantoprazole 40 mg daily, losartan 50 mg daily, simvastatin 20 mg daily, 81 mg aspirin daily, 2 grams of fish oil daily, metoprolol 100 mg daily, alprazolam 0.25 mg p.r.n. anxiety, metformin 1000 mg b.i.d. REVIEW OF SYSTEMS: CONSTITUTIONAL: He denies any change in weight, night sweats, chills or fever. Baseline energy level reported. CARDIOVASCULAR: He denies chest pain, dyspnea on exertion, orthopnea, PND, pedal edema. PULMONARY: He denies cough, wheezing or shortness of breath with regular activity. GASTROINTESTINAL: As noted in the HPI. PHYSICAL EXAMINATION: GENERAL: Reveals a pleasant white male, appears to be in no acute distress. VITAL SIGNS: Weight 240 pounds, BMI 34, blood pressure 120/80. HEENT: Unremarkable. NECK: Revealed no JVD, adenopathy or bruits. CHEST: Clear to auscultation. CARDIOVASCULAR: Revealed a regular rate and rhythm without murmur, S3 or S4. ABDOMEN: Soft, supple without mass, organomegaly or tenderness. Bowel sounds positive. No bruits noted. EXTREMITIES: Reveal no cyanosis, clubbing or edema. ASSESSMENT AND PLAN: The patient was set up for repeat EGD evaluation due to history of erosive esophagitis and esophageal stricture and diagnostic colonoscopy due to intermittent diarrhea with bilateral lower quadrant abdominal pain and past history of colonic polyps. We will be reviewing his last colonoscopy report greater than 5 years ago done by Dr. Sands, but currently the electronic medical record is down for routine maintenance. The patient is being set up for his procedures on 02/18/2020 to be done under Diprivan based anesthesia. Job ID: [id number] DocumentID: [id number] Dictated Date: 02/09/2020 15:23:03 Core Sucker Date: 02/09/2020 15:51:44 Dictated By: SHELLEY POTTS MD
[~2020-02-18] VITALS: Ht 175.3 cm; Wt 109.1 kg
[2020-02-18] MEDS ORDERED: LACTATED RINGERS 1,000 ML IV STA (08:03)
[2020-02-18] MEDS ORDERED: LACTATED RINGERS 1,000 ML IV ONE (08:07)
[2020-02-18] MEDS ORDERED: HURRICAINE EXT TUBE (BENZOCAINE) XX PRN (08:15)
[2020-02-18 08:20] VITALS: BP 123/80
[2020-02-18] MEDS ORDERED: PROPOFOL INJECTION 50 ML IV ONE (08:39)
--- NOTE | 2020-02-18 08:39 | Pre-Op Note & Conscious Sedat ---
Pre-Operative Progress Note H&P Reviewed The H&P was reviewed, patient examined and no changes noted. Date H&P Reviewed: Feb 18, 2020 Time H&P Reviewed: 08:38 Conscious Sedation Pre-Proced ASA Score 2 For ASA 3 and 4: Consider anesthesia and medical clearance. Also, for patients with a history of failed moderate sedation consider anesthesia. Airway Lungs Heart ASA score ASA 1: a normal healthy patient ASA 2: a patient with a mild systemic disease (mid diabetes, controlled hypertension, obesity ASA 3: a patient with a severe systemic disease that limits activity (angina, COPD, prior Myocardial infarction) ASA 4: a patient with an incapacitating disease that is a constant threat to life (CHF, renal failure) ASA 5: a moribund patient not expected to survive 24 hrs. (ruptured aneurysm) ASA 6: a declared brain- patient whose organs are being harvested. For emergent operations, add the letter E after the classification Mallampati Classification Grade 3 Sedation Plan Analgesia, Amnesia, Plan communicated to team members, Discussed options with patient/fam, Discussed risks with patient/fam The patient is an appropriate candidate to undergo the planned procedure, sedation, and anesthesia. The patient immediately re-assessed prior to indication. SHELLEY POTTS MD Feb 18, 2020 08:39
[2020-02-18] MEDS ORDERED: LACTATED RINGERS 1,000 ML IV SCH ×2 (08:45→09:00)
[2020-02-18] MEDS ORDERED: LIDOCAINE JELLY 2% 6 ML SYRINGE ONE (09:16)
[2020-02-18] MEDS: LIDOCAINE JELLY 2% 6 ML SYRINGE MM PRN ×2 (09:24→09:34)
[2020-02-18 09:55] VITALS: BP 130/78
[2020-02-18 10:00] VITALS: BP 135/78
[2020-02-18 10:05] VITALS: BP 135/78
[2020-02-18 10:37] VITALS: BP 146/75
--- NOTE | 2020-02-18 11:31 | Anesthesia-General Post-Op ---
MAC Patient Condition Mental Status/LOC: Same as Preop Cardiovascular: Satisfactory Nausea/Vomiting: Absent Respiratory: Satisfactory Pain: Controlled Complications: Absent Post Op Complications Complications None Follow Up Care/Instructions Patient Instructions None needed. Anesthesiology Discharge Order Discharge Order Patient is doing well, no complaints, stable vital signs, no apparent adverse anesthesia problems. No complications reported per nursing. JOSHUA EVERETT CRNA Feb 18, 2020 11:31
--- NOTE | 2020-02-18 18:33 | OPERATIVE REPORT ---
DATE OF SERVICE: PANENDOSCOPY SUMMARY INDICATION FOR THE PROCEDURE: Panendoscopy is performed for reflux symptoms, epigastric pain and intermittent diarrhea. The patient was placed in the left lateral decubitus position. Prior to undergoing colonoscopy, digital rectal evaluation was performed. Anal sphincter tone was normal and the perianal reflexes intact. There is prominent perianal skin fold noted at the 12 o'clock position, but no evidence for internal or external hemorrhoids were noted. No abnormalities were noted on digital inspection of anal canal. Prostate was not palpable. No mass was noted on digital inspection of anal canal or distal rectal vault. The colonoscope was then inserted into the rectum and under direct visualization advanced to cecum. The cecum was identified by identification of the ileocecal valve and cecal strap. Quality of prep was fair. FINDINGS: There was no evidence for internal or external hemorrhoids with 1 prominent perianal skin fold as noted above. A biopsy was obtained from the rectum and submitted for microscopic colitis. Several medium size sigmoid diverticulum were noted in the sigmoid colon without evidence for diverticulitis. No other sigmoid colonic abnormalities were appreciated. The descending colon, splenic flexure, transverse colon, hepatic flexure, ascending colon and cecum were unremarkable. ASSESSMENT: Mild diverticular disease confined to the sigmoid colon is present without evidence for diverticulitis. This is otherwise normal colonoscopy to the cecum. We then proceeded with EGD evaluation. The upper endoscope was inserted in the oral cavity and under direct visualization, the esophagus was intubated. Endoscope was passed down the esophagus, stomach and second portion of the duodenum. Careful inspection was made as the endoscope was withdrawn. The patient tolerated the procedure well. FINDINGS: The posterior pharynx, arytenoid aperture and true and false vocal folds were unremarkable as well as the epiglottis on visual inspection. Proximal, mid and distal esophagus were unremarkable. There was no evidence for erosive esophagitis, hiatal hernia, rings, webs, strictures or Damon's change on gross inspection. The cardia of the stomach was unremarkable. Several fundal polyps were noted. The largest was removed and submitted for histopathology. Present in the antrum were some linear areas of erythema. A biopsy was obtained and submitted for Helicobacter. The pylorus, the pyloric channel, duodenal bulb and second portion of duodenum were unremarkable to gross inspection. No evidence for peptic ulcer disease is noted. ASSESSMENT: There is no evidence for erosive esophagitis or hiatal hernia formation today. Several fundal appearing polyps were noted in the fundus. The largest was removed and submitted for histopathology. Gross examination of the antrum of the stomach was compatible with mild gastritis. A biopsy was obtained and submitted for Helicobacter. No other abnormalities were noted on today's upper endoscopy. The patient was reassured by today's findings, considering age and medical comorbidities, would not recommend future screening colonoscopy. I thank you for the referral of this pleasant gentleman. Job ID: [id number] DocumentID: [id number] Dictated Date: 02/18/2020 11:01:29 Sales Recruiting Coordinator Date: 02/18/2020 18:31:50 Dictated By: SHELLEY POTTS MD
== END 2020-02-18 10:45 | disposition home or self-care (01) ==
LOC: ENDO 07:55
PROVIDERS: ATTEND Internal Medicine
DX: K31.7 Polyp of stomach and duodenum (principal); K21.9 Gastro-esophageal reflux disease without esophagitis; K57.30 Diverticulosis of large intestine without perforation or abscess without bleeding; K52.9 Noninfective gastroenteritis and colitis, unspecified; I10 Essential (primary) hypertension; I25.10 Atherosclerotic heart disease of native coronary artery without angina pectoris; G47.33 Obstructive sleep apnea (adult) (pediatric); Z79.84 Long term (current) use of oral hypoglycemic drugs; Z79.899 Other long term (current) drug therapy; Z91.041 Radiographic dye allergy status; Z95.5 Presence of coronary angioplasty implant and graft; Z87.891 Personal history of nicotine dependence
CPT/HCPCS: 88305

== ENCOUNTER → 2021-04-27 | Outpatient (CLI) | payer MEDICARE ==
[~2021-04-27] VITALS: Ht 175 cm; Wt 108.0 kg
[~2021-04-27] MED LIST changes: +ASPI-1238 PO; -ASPI-983 PO; +CATHETER FLUSH 10 ML SYR IV PRN; -MONT10TA26 PO; +MONT10TA32 PO; -PANT40TA3 PO; +PANT40TA52 PO
[2021-04-27 08:59] VITALS: BP 149/69
--- NOTE | 2021-04-27 19:36 | STRESS TEST ---
DATE OF SERVICE: 04/27/2021 RESTING AND POST EXERCISE TECHNETIUM-99M TETROFOSMIN SPECT CT IMAGING ORDERING PHYSICIAN: Dr. Sung. PRIMARY PHYSICIAN: Dr. Cevallos. CLINICAL DIAGNOSIS: Coronary artery disease. Baseline images were carried out after injection of 10.73 mCi of technetium-99m Tetrofosmin. This was followed by exercise on a treadmill. Frank protocol was employed. Heart rate response to exercise was normal. Blood pressure response to exercise was hypertensive. There was approximately 0.5-[address] segment depression. This did not change significantly with exercise. A brief run of supraventricular tachycardia, partly wide complex and partly narrow complex was seen in the recovery phase. They consisted of a total of 10 beats. The patient exercised for a total of 8 minutes and 20 seconds. The test was stopped on account of fatigue. He had attained 120% of maximum predicted heart rate. After he had attained more than 85% of maximum predicted heart rate, 29.3 mCi of technetium-99m Tetrofosmin were injected and the exercise was continued for more than another minute. Review of images at rest and following stress does not indicate any perfusion defects consistent with myocardial ischemia or infarction. Gated images show normal global left ventricular systolic function with normal regional wall motion. Left ventricular ejection fraction is calculated to be 60%. CONCLUSIONS: 1. No evidence of any significant myocardial ischemia or infarction on this study. 2. Normal regional wall motion. 3. Normal global left ventricular systolic function with a calculated ejection fraction of 60%. Job ID: [id number] DocumentID: [id number] Dictated Date: 04/27/2021 16:09:41 Bundle Sorter Date: 04/27/2021 19:34:48 Dictated By: SANTIAGO SUNG MD, MA, FACP, FACC,
== END ==
LOC: CARD 08:00
PROVIDERS: ATTEND Internal Medicine Cardiovascular Disease
DX: I25.10 Atherosclerotic heart disease of native coronary artery without angina pectoris (principal)
CPT/HCPCS: 78452; 93017; A9502

== ENCOUNTER → 2022-01-16 | Outpatient (CLI) | payer MEDICARE ==
[~2022-01-16] MED LIST changes: -CATHETER FLUSH 10 ML SYR IV PRN; +MONT-40 PO; -MONT10TA32 PO
--- NOTE | 2022-01-16 08:50 | Diagnostic Imaging Report ---
PROCEDURE: US Gallbladder. INDICATION: Right upper quadrant abdominal pain TECHNIQUE: Multiple grayscale sonographic images were obtained of the right upper quadrant of the abdomen. CORRELATION STUDY: 01/02/2017 FINDINGS: LIVER: Liver borderline enlarged, 19.6 cm. Increased echogenicity may reflect fatty infiltration. No definitive focal lesion. The main portal vein is patent and with normal direction of flow. GALLBLADDER: Very small rounded echogenic foci, non-dependent and non-mobile and non-shadowing present, may reflect small polyp. Gallbladder wall thickness within normal limits, 0.2 cm. No pericholecystic fluid. COMMON BILE DUCT: Nondilated at 0.5 cm. AORTA/IVC: Obscured by overlying bowel gas. PANCREAS: Obscured by overlying bowel gas. RIGHT KIDNEY: 11.7 x 5.4 x 5.7 cm. No hydronephrosis. OTHER: No right upper quadrant ascites. IMPRESSION: 1. Hepatomegaly with probable component of hepatic steatosis. 2. Probable small gallbladder polyp. No gallstones or bile duct dilatation. Dictated by: Dictated on workstation # [id number]
== END ==
LOC: RAD 06:55
PROVIDERS: ATTEND Nurse Practitioner Family
DX: R07.9 Chest pain, unspecified (principal); R10.11 Right upper quadrant pain; R16.0 Hepatomegaly, not elsewhere classified
CPT/HCPCS: 76705; 93306

== ENCOUNTER → 2022-01-22 | Outpatient (CLI) | payer MEDICARE ==
--- NOTE | 2022-01-22 17:36 | Diagnostic Imaging Report ---
INDICATION: Cough PA and lateral chest obtained at 0336 p.m. and compared to 11/04/2018. There is cardiomegaly and poststernotomy change. There is no focal infiltrate or pneumothorax or pleural fluid. IMPRESSION: Cardiomegaly and post sternotomy change with no acute process in the chest. Dictated by: Dictated on workstation # [id number]
== END ==
LOC: RAD 15:24
PROVIDERS: ATTEND Nurse Practitioner Family
DX: I51.7 Cardiomegaly (principal)
CPT/HCPCS: 71046

== ENCOUNTER 2022-04-05 12:34 | Outpatient (CLI) | payer MEDICARE | END 2022-04-05 13:00 | LOC: SLEEP 12:34 | PROVIDERS: ATTEND Internal Medicine Critical Care Medicine | DX: G47.33 Obstructive sleep apnea (adult) (pediatric) (principal); G47.10 Hypersomnia, unspecified | CPT/HCPCS: G0399 ==

== ENCOUNTER → 2022-11-22 | Outpatient (CLI) | payer MEDICARE ==
[~2022-11-22] MED LIST changes: +CATHETER FLUSH 10 ML SYR IV PRN; +HOLD METFORMIN - RECEIVED CONTRAST 20 ML VIAL IV SCH; +IOHEXOL 350 MG/ML 100 ML (OMNIPAQUE 350) VIAL IV ONE; +NS 100 ML (IVPB) BAG IV ONE
[2022-11-22 08:26] LABS: CREATININE SERUM 0.87 MG/DL (0.60-1.30)
--- NOTE | 2022-11-22 09:15 | Diagnostic Imaging Report ---
PROCEDURE: CT head with and without contrast. TECHNIQUE: Multiple contiguous axial images were obtained through the brain before and after the administration of intravenous contrast. Auto Exposure Controls were utilized during the CT exam to meet ALARA standards for radiation dose reduction. INDICATION: DIZZINESS COMPARISON: None. FINDINGS: The ventricles and cortical sulci are diffusely prominent, compatible with age-related volume loss. There are confluent areas of abnormal, low attenuation in the periventricular white matter. This is consistent with small vessel ischemic changes; age-indeterminate. There is no prior study available for comparison. Postcontrast images show no abnormal areas of enhancement. There is no midline shift or mass-effect. No acute intra-axial hemorrhage is seen. There are no abnormal areas of increased or decreased density to suggest acute hemorrhage or edema. No extra-axial masses or collections are present. The bony calvarium is intact. The visualized paranasal sinuses are unremarkable. The mastoid air cells are clear. IMPRESSION: 1. No acute intracranial abnormality. No CT evidence of mass, acute infarct or intracranial hemorrhage. 2. Small vessel ischemic changes in the periventricular and subcortical white matter; likely chronic. Dictated by: Dictated on workstation # [id number]
== END ==
LOC: RAD 07:47
PROVIDERS: ATTEND Internal Medicine Cardiovascular Disease
DX: I67.82 Cerebral ischemia (principal)
CPT/HCPCS: 36415; 70470; 82565; 84520